=== PATIENT | male | born 1975 | race Caucasian/White ===

== ENCOUNTER → 2019-07-16 | Outpatient (CLI) | payer OTHER ==
[~2019-07-16] MED LIST: 0.9 % SODIUM CHLORIDE 10 ML DISP.SYRIN. ID ONE; GADOTERATE 5 MMOL/10ML VIAL. INT ART ONE; IOHEXOL 300 MG/ML 50 ML VIAL. INT ART ONE; LIDOCAINE 1% Multi-Dose 20 ML VIAL. ID ONE
--- NOTE | 2019-07-16 15:38 | KCIC ---
EXAM: Right shoulder injection WITH Fluoroscopic guidance DATE: 07/16/2019 1:00 PM CLINICAL HISTORY: Right shoulder pain COMPARISON: None pertinent TECHNIQUE: The patient was informed of the indications and alternatives for this procedure as well as risks and benefits. No immediate contraindication identified. The patient provided informed, written consent. Laterality was confirmed by the entire team following a time out. Following initial right glenohumeral joint localization, a suitable area was sterilely prepped and draped. Local anesthesia was administered with 1% xylocaine. With intermittent fluoroscopic observation, a 22-gauge spinal needle was advanced into the right shoulder joint sheath/capsule with confirmation of intra-synovial position with infusion of less than 1 cc iodinated contrast. Subsequent infusion 12 cc solution containing 10 cc saline, 5 cc lidocaine 1%, 5 cc Isovue and 0.1 cc gadolinium. Hemostasis with local pressure. Local clinical exam negative for immediate complication. Patient informed re local potential signs or symptoms that may indicate need to return to ER/Ordering physician for further evaluation. Patient informed re precautionary measures after intra-synovial injection of anesthetic. Patient expressed understanding. Performing Physicians: Dr. Larry Gallegos Blood Loss: 0 cc Total Fluoroscopy time: 10 seconds Total spot images taken: 0 Total number fluoroscopic screen save images taken: 2 IMPRESSION: Successful intra-synovial right shoulder joint injection of gadolinium contrast per clinical request. Electronically signed by: Edgar Gallegos MD (07/16/2019 3:35 PM) [id number]
--- NOTE | 2019-07-16 16:29 | KCIC ---
EXAM: MR arthrogram right shoulder DATE: 07/16/2019 2:00 PM COMPARISON: None INDICATION: Chronic right shoulder pain, decreased range of motion TECHNIQUE: Multiplanar, multisequence MRI of the right shoulder was performed following the administration of IV contrast. Please see dedicated procedure report for full injection details. FINDINGS: Iatrogenic distention of the right glenohumeral joint with gadolinium contrast. Mild AC joint degenerative changes are seen. Type II acromion. No os acromiale. No significant subacromial-subdeltoid bursal distention. No rotator cuff tear is seen. Mild increased signal within the distal infraspinatus tendon likely tendinosis. Rotator cuff muscle bulk and signal is normal. Extra articular long head biceps tendon is seen within the bicipital groove. Intra-articular long head biceps tendon is normal in signal and morphology. Anterior inferior labral tear extending from approximately the 4:00-6:00 position, best delineated on the [place] views. Mild associated chondral thinning with small full-thickness defect is seen anterior, inferior glenoid. Small joint body is seen within the subscapularis recess (series 3 image 17, series 7 image 9). No evidence for acute fracture or osteonecrosis. No signal is grossly preserved. IMPRESSION: 1. Anterior-inferior labral tear extending from approximately the 4:00-6:00 position. 2. Small joint body is seen within the subscapularis recess measuring 9 mm, possibly from the anterior inferior glenoid. Electronically signed by: Edgar Gallegos MD (07/16/2019 4:26 PM) [id number]
== END ==
LOC: KCIC 13:39
PROVIDERS: ATTEND Family Medicine
DX: M25.511 Pain in right shoulder (principal)
CPT/HCPCS: 23350; 73222; 77002; A9575; J3490; Q9967; 73040